=== PATIENT | male | born 1990 | race Caucasian/White ===

== ENCOUNTER 2018-01-23 10:39 | Emergency (ER) | payer OTHER ==
[~2018-01-23] VITALS: Ht 170.2 cm; Wt 84.5 kg
[2018-01-23 10:55] VITALS: BP 142/79; PULSE 75; RESP 18; O2SAT 99
[2018-01-23] MEDS ORDERED: SODIUM CHLOR 0.9% 1000 ML INJ 1,000 ML IV ONE (11:00)
--- NOTE | 2018-01-23 11:09 | PD ---
HPI Chief Complaint: Respiratory Distress Time Seen by Provider: 10:55 Travel History International Travel<30 days: No Contact w/Intl Traveler<30days: No Traveled to known affect area: No History of Present Illness HPI This is a 27-year-old male with a history of PTSD, previous PVCs, decreased lung capacity, who presents today with complaints of feeling short of breath and anxious while at the [facility] restaurant. The patient states that he was at the [facility] restaurant and the food had just been delivered. He reports shortly thereafter he started feeling like he could not catch his breath. He states that he also felt palpitations at that time. The patient states he feels much improved now. He states during the episode he started getting tingling feeling in his hands and feet. He does have a history of PTSD. He states his last episode was 2 months ago. He is here visiting for bike week. He states that he is scheduled to go back home today. There is no reported long car rides. He does ride his motorcycle and has been riding it all week. There is no calf swelling or calf tenderness. There is no palpitations or shortness of breath now. He did report drinking last night while out. He states he did not drink in excess amount of alcohol. He denies any drug use. There are no other complaints at time of examination. [facility] Past Medical History Heart Rhythm Problems: Yes (PVC, IRREGULAR ) Tetanus Vaccination: Unknown Past Surgical History Surgical History: No Previous Surgery Social History Alcohol Use: Yes Tobacco Use: No Substance Use: No Allergies-Medications (Allergen,Severity, Reaction): Coded Allergies: No Known Allergies (Unverified , 01/23/18) Reported Meds & Prescriptions Reported Meds & Active Scripts Active No Active Prescriptions or Reported Medications Review of Systems Except as stated in HPI: all other systems reviewed are Neg General / Constitutional: No: Fever, Chills Eyes: No: Diploplia, Blurred Vision HENT: No: Headaches, Neck Pain Cardiovascular: Positive: Palpitations ( Earlier, none now), No: Chest Pain or Discomfort Respiratory: Positive: Shortness of Breath (Earlier, none now), No: Cough Gastrointestinal: No: Nausea, Vomiting, Abdominal Pain Musculoskeletal: No: Weakness, Pain Neurologic: Positive: Sensory Disturbance (Numbness and tingling to his hands and feet during the episode. None now.), No: Weakness, Headache, Change in Mentation Psychiatric: Positive: Other (History of PTSD), No: Substance Abuse Physical Exam Narrative GENERAL: Well-developed well-nourished male in no acute distress. SKIN: Focused skin assessment warm/dry. HEAD: Atraumatic. Normocephalic. EYES: No scleral icterus. No injection or drainage. ENT: No nasal bleeding or discharge. Mucous membranes pink and moist. NECK: Trachea midline. Supple. CARDIOVASCULAR: Regular rate and rhythm. No murmur appreciated. No ectopy. RESPIRATORY: No accessory muscle use. Clear to auscultation. Breath sounds equal bilaterally. GASTROINTESTINAL: Abdomen soft, non-tender, nondistended. MUSCULOSKELETAL: No obvious deformities. No clubbing. No cyanosis. No edema. NEUROLOGICAL: Awake and alert. No obvious cranial nerve deficits. Motor grossly within normal limits. Normal speech. PSYCHIATRIC: Appropriate mood and affect; insight and judgment normal. Data Data Last Documented VS Vital Signs Date Time Temp Pulse Resp B/P (MAP) Pulse Ox O2 Delivery O2 Flow Rate FiO2 01/23/18 10:55 75 18 142/79 (100) 99 Room Air Orders Orders Electrocardiogram (01/23/18 10:57) Complete Blood Count With Diff (01/23/18 10:57) Basic Metabolic Panel (Bmp) (01/23/18 10:57) Sodium Chlor 0.9% 1000 Ml Inj (Ns 1000 M (01/23/18 11:00) Labs Laboratory Tests Test 01/23/18 11:03 White Blood Count 10.6 TH/MM3 Red Blood Count 5.33 MIL/MM3 Hemoglobin 15.9 GM/DL Hematocrit 45.1 % Mean Corpuscular Volume 84.6 FL Mean Corpuscular Hemoglobin 29.8 PG Mean Corpuscular Hemoglobin Concent 35.3 % Red Cell Distribution Width 13.3 % Platelet Count 222 TH/MM3 Mean Platelet Volume 8.0 FL Neutrophils (%) (Auto) 79.6 % Lymphocytes (%) (Auto) 11.8 % Monocytes (%) (Auto) 7.8 % Eosinophils (%) (Auto) 0.4 % Basophils (%) (Auto) 0.4 % Neutrophils # (Auto) 8.4 TH/MM3 Lymphocytes # (Auto) 1.3 TH/MM3 Monocytes # (Auto) 0.8 TH/MM3 Eosinophils # (Auto) 0.0 TH/MM3 Basophils # (Auto) 0.0 TH/MM3 CBC Comment DIFF FINAL Differential Comment Blood Urea Nitrogen 8 MG/DL Creatinine 1.04 MG/DL Random Glucose 88 MG/DL Calcium Level 8.7 MG/DL Sodium Level 139 MEQ/L Potassium Level 3.8 MEQ/L Chloride Level 104 MEQ/L Carbon Dioxide Level 26.2 MEQ/L Anion Gap 9 MEQ/L Estimat Glomerular Filtration Rate 86 ML/MIN MDM Medical Decision Making Medical Screen Exam Complete: Yes Emergency Medical Condition: Yes Interpretation(s) EKG obtained at 1101 showed normal sinus rhythm with a rate of 77. There were no acute ST elevation or depression. There was nonspecific lateral flattening of the T-wave in aVL. Differential Diagnosis Panic attack versus metabolic derangement versus SVT versus symptomatic PVCs Narrative Course 27-year-old male presents today after having an episode of palpitations and what he describes as shortness of breath followed by tingling of his hands and feet. Patient has history of PTSD. He has had episodes of what sounds like anxiety episodes before. He states this 1 was worse. The patient is asymptomatic at the time of my evaluation. Laboratory tests show no evidence of acute electrolyte abnormalities. He has been given 1 L fluid bolus. EKG shows no evidence of ectopy. Rate of 77. The patient has no findings that are suspicious for a pulmonary embolus. He will be discharged. I discussed with both the patient and his dad that this possibly could be a anxiety attack. [facility] and seek out some support groups if he continues to have episodes. Is also instructed to increase his fluid intake. Diagnosis Primary Impression: Palpitations Additional Impression: Suspected panic attack. Additional Instructions: Increase fluid intake. Follow-up with the [facility] for possible support groups. Return if feeling worse. Scripts No Active Prescriptions or Reported Meds Disposition: 01 DISCHARGE HOME Condition: Stable Jorge Patel MD Jan 23, 2018 11:09
[2018-01-23 11:18] LABS: AUTOMATED NEUTROPHIL # 8.4 TH/MM3 (1.8-7.7); BASOPHIL % 0.4 % (0.0-2.0); EOSINOPHIL % 0.4 % (0.0-4.0); HEMATOCRIT 45.1 % (39.0-51.0); HEMOGLOBIN 15.9 GM/DL (13.0-17.0); LYMPH % 11.8 % (9.0-44.0); LYMPHOCYTE # 1.3 TH/MM3 (1.0-4.8); MEAN CELL VOLUME 84.6 FL (80.0-100.0); MEAN CORPUSCULAR HEMOGLOBIN 29.8 PG (27.0-34.0); MEAN CORPUSCULAR HGB CONC 35.3 % (32.0-36.0); MONO % 7.8 % (0.0-8.0); MONOCYTE # 0.8 TH/MM3 (0-0.9); NEUT % 79.6 % (16.0-70.0); PLATELET COUNT 222 TH/MM3 (150-450); RED BLOOD COUNT 5.33 MIL/MM3 (4.50-5.90); RED CELL DISTRIBUTION WIDTH 13.3 % (11.6-17.2); WHITE BLOOD COUNT 10.6 TH/MM3 (4.0-11.0)
[2018-01-23 11:52] LABS: BICARBONATE 26.2 MEQ/L (21.0-32.0); CALCIUM 8.7 MG/DL (8.5-10.1); CREATININE 1.04 MG/DL (0.60-1.30)
--- NOTE | 2018-01-24 11:28 | EKG ---
Date Performed: 01/23/2018 Time Performed: 11:01:25 PTAGE: 27 years EKG: Sinus rhythm NONSPECIFIC T-WAVE ABNORMALITY BORDERLINE ECG NO PREVIOUS TRACING DOCTOR: Hiral Alvarez Interpretating Date/Time 01/24/2018 11:25:16
== END 2018-01-23 13:33 | disposition home or self-care (01) ==
LOC: NEPE 10:39
DX: R00.2 Palpitations (principal); F43.10 Post-traumatic stress disorder, unspecified; R94.31 Abnormal electrocardiogram [ECG] [EKG]
CPT/HCPCS: 80048; 85025; 93005; 99284; J7030